=== PATIENT | female | born 1925 | race Caucasian/White ===

== ENCOUNTER → 2017-01-03 | Outpatient (REF) ==
[~2017-01-03] MED LIST: ANTIVERT 25MG25 MG PO; ARICEPT 5MG PO; ASPIRIN 81M81 MG/TA2 PO; CALTRATE 600 +1 TAB PO; CENTRUM SILVER1 TA2 PO; EVISTA 60MG60 MG/TAB PO; FISH OIL 1000MG1 CAP PO; NORVASC 10MG10 MG PO; PRINZIDE 12.5 M1 TA1 PO; VITAMIN C500 MG PO; ZETIA 10MG TAB10 MG PO; ZOFRAN ODT4 MG PO
== END ==
LOC: ZLAB.WCH 14:42
DX: Z01.89 Encounter for other specified special examinations (principal)

== ENCOUNTER → 2017-03-12 | Outpatient (REF) | LOC: ZLAB.WCH 18:01 | DX: Z01.89 Encounter for other specified special examinations (principal) ==

== ENCOUNTER → 2017-05-21 | Outpatient (REF) | LOC: ZLAB.WCH 18:42 | DX: Z01.89 Encounter for other specified special examinations (principal) ==

== ENCOUNTER → 2017-06-01 | Outpatient (REF) | LOC: ZLAB.WCH 10:30 | DX: Z01.89 Encounter for other specified special examinations (principal) ==